=== PATIENT | female | born 1950 | race Caucasian/White ===

== ENCOUNTER 2020-01-04 16:11 | Emergency (ER) | payer MEDICARE, BC ==
[~2020-01-04] VITALS: Ht 157.5 cm; Wt 59.1 kg
[2020-01-04 16:45] VITALS: BP 121/62
== END 2020-01-04 16:58 | disposition home or self-care (01) ==
LOC: ER 16:12
DX: J02.9 Acute pharyngitis, unspecified (principal); R09.89 Other specified symptoms and signs involving the circulatory and respiratory systems; Z20.828 Contact with and (suspected) exposure to other viral communicable diseases
CPT/HCPCS: 36415; 87635; 99283